=== PATIENT | female | born 1945 | race Caucasian/White ===

== ENCOUNTER 2016-05-28 11:10 | Outpatient (CLI) | payer MEDICARE ==
[2013-11-16 15:28] VITALS: BP 147/61
[2016-05-28 11:52] LABS: eGFR (African) > 60; eGFR (Non-African) > 60
== END 2016-05-28 11:11 ==
LOC: LAB 11:10
PROVIDERS: ATTEND Family Medicine
DX: I10 Essential (primary) hypertension (principal)
CPT/HCPCS: 36415; 80053

== ENCOUNTER 2017-12-04 10:07 | Outpatient (CLI) | payer MEDICARE ==
[2013-11-16 15:28] VITALS: BP 147/61
[2017-12-04 11:25] LABS: EOSINOPHILS % 3.9 % (0.0-6.8); MEAN CORPUSCULAR HEMOGLOBIN 32.3 pg (28.0-34.0); MEAN CORPUSCULAR VOLUME 93.9 fl (80.0-100.0); MONOCYTES % 4.7 % (0.0-11.0); NEUTROPHILS # 1.8 # k/uL (1.4-7.7)
[2017-12-04 11:38] LABS: eGFR (African) > 60; eGFR (Non-African) > 60
== END 2017-12-04 10:12 ==
LOC: LAB 10:07
PROVIDERS: ATTEND Physician Assistant
DX: R42 Dizziness and giddiness (principal); R00.1 Bradycardia, unspecified; R53.83 Other fatigue
CPT/HCPCS: 36415; 80053; 84439; 84443; 84481; 85025

== ENCOUNTER 2018-09-06 09:46 | Outpatient (CLI) | payer MEDICARE ==
[2013-11-16 15:28] VITALS: BP 147/61
[2018-09-06 10:19] LABS: MEAN CORPUSCULAR HEMOGLOBIN 31.6 pg (28.0-34.0)
[2018-09-06 10:20] LABS: BASOPHILS % 9.5 % (0.0-1.5); EOSINOPHILS % 5.4 % (0.0-6.8); MONOCYTES % 4.3 % (0.0-11.0)
[2018-09-06 10:44] LABS: eGFR (Non-African) > 60
[2018-09-06 11:02] LABS: NEUTROPHILS # 1.6 # k/uL (1.4-7.7)
--- NOTE | 2018-09-06 13:54 | Diagnostic Imaging Report ---
JIAN SCOTT [facility] [address] [facility]ly [facility], 1930[address] [address] Report Submission Date: Sep 06, 2018 1:31:46 PM CDT Patient Study Name: RYAN LAGUERRE Date: Sep 06, 2018 10:04:07 AM CDT Modality Type: DX Gender: F Description: CHEST 2VIEW : 41 Institution: [facility] Physician: JIAN SCOTT PA and lateral chest History: Preop for cardiac catheterization. Persisting cough after influenza PA and lateral chest dated September 06, 2018 is without prior radiographs for comparison. The cardiomediastinal silhouette is normal. There is a calcified granuloma at the right lung base. Pulmonary vascularity is normal. There is no infiltrate or pleural effusion. Impression: Old granulomatous disease. No active disease. Electronically signed on Sep 06, 2018 1:31:46 PM CDT by: Suzi THOMAS
== END 2018-09-06 09:47 ==
LOC: LAB 09:46
PROVIDERS: ATTEND Family Medicine
DX: I10 Essential (primary) hypertension (principal); R05 Cough
CPT/HCPCS: 36415; 71046; 80053; 83880; 85025

== ENCOUNTER 2019-02-07 13:44 | Outpatient (CLI) | payer MEDICARE ==
[2013-11-16 15:28] VITALS: BP 147/61
[2019-02-07 14:17] LABS: BASOPHILS % 0.4 % (0.0-1.5); NEUTROPHILS # 1.9 # k/uL (1.4-7.7)
[2019-02-07 15:18] LABS: eGFR (Non-African) > 60
== END 2019-02-07 13:46 ==
LOC: LAB 13:44
PROVIDERS: ATTEND Nurse Practitioner Family
DX: F32.9 Major depressive disorder, single episode, unspecified (principal)
CPT/HCPCS: 36415; 80053; 84439; 84443; 84481; 85025

== ENCOUNTER 2019-03-01 11:13 | Emergency (ER) | payer MEDICARE ==
[2013-11-16 15:28] VITALS: BP 147/61
[2019-03-01] MEDS ORDERED: MECLIZINE HCL 25 MG TABLET PO ONE (13:00)
[2019-03-01] MEDS ORDERED: LISINOPRIL 5 MG TABLET ONE (13:00)
[2019-03-01] MEDS ORDERED: hydroCHLOROthiazide 25 MG TABLET PO ONE (13:00)
--- NOTE | 2019-03-16 10:07 | Diagnostic Imaging Report ---
ANGELICA PAL ED [facility] [address] [facility].[address] [address] Report Submission Date: Mar 01, 2019 12:49:34 PM CDT Patient Study Name: RYAN LAGUERRE Date: Mar 01, 2019 11:55:35 AM CDT Modality Type: DX Gender: F Description: LT HIP 2VIEW COMPLETE : 41 Institution: [facility] Physician: ANGELICA PAL ED Examination: Plain film left hip History: PAIN AND BRUISING AFTER FALL PATIENT STATES SHE GOT REALLY DIZZY AND FELL ON HER LEFT HIP X TODAY Comparison exams: None provided Findings: 2 views of the left hip demonstrates osteopenia. Articular degenerative spuring. No fracture no dislocation. No soft tissue abnormality. Impression: Osteopenia and degenerative changes. No acute osseous abnormality. Electronically signed on Mar 01, 2019 12:49:34 PM CDT by: Dre THOMAS
--- NOTE | 2019-03-16 10:08 | Diagnostic Imaging Report ---
ANGELICA PAL ED [facility] [address] [facility] [address] [place], [place]. [address] Report Submission Date: Mar 01, 2019 12:47:08 PM CDT Patient Study Name: RYAN LAGUERRE Date: Mar 01, 2019 12:23:52 PM CDT Modality Type: CT\SR Gender: F Description: CT HEAD W/O : 41 Institution: [facility] Physician: ANGELICA PAL ED Examination: CT head without contrast History: DIZZINESS EVERY TIME SHE STANDS PATIENT STATES SHE GOT REALLY DIZZY AND FELL X TODAY Comparison exam: None available Technique: Noncontrast head CT protocol. Findings: Ventricles and sulci are consistent for patient age. Cerebrocerebellar parenchyma demonstrates periventricular low attenuation consistent with small vessel disease. No evidence for parenchymal hemorrhage. No evidence for mass or mass effect. No midline shift. No extra axial fluid collections. Partial visualization of the paranasal sinuses demonstrates sphenoid sinus opacification. Mastoid air cells, orbits, skull and scalp without gross irregularity. Mild hyperostosis frontalis interna. Impression: Age related changes. No acute parenchymal process. No hemorrhage. Electronically signed on Mar 01, 2019 12:47:08 PM CDT by: Dre THOMAS
== END 2019-03-01 13:45 ==
LOC: ED 11:13
DX: I10 Essential (primary) hypertension (principal)
CPT/HCPCS: 70450; 99283; 99284